=== PATIENT | male | born 1955 | race Caucasian/White ===

== ENCOUNTER 2018-09-07 05:32 | Day surgery (SDC) | payer BC ==
[2018-09-06 10:38] VITALS: BP 166/86
[2018-09-07] VITALS (18 sets, daily range): BP systolic 114–163; BP diastolic 62–82
[~2018-09-07] VITALS: Ht 172.7 cm; Wt 98.7 kg
[~2018-09-07 05:32] MED LIST: ACET1TAB12 PO; ALLO100T PO; CLIN300C9 PO; SULF1TAB3 PO; VANCOMYCIN 1.5 GM in SODIUM CHLORIDE 0.9% 250 ML IV SCH
[2018-09-07] MEDS ORDERED: LACTATED RINGERS 1000ML 1,000 ML IV ONE (06:23)
[2018-09-07] MEDS ORDERED: VANCOMYCIN HCL 1 GM VIAL ONE ×2 (07:35→09:25)
[2018-09-07] MEDS ORDERED: MIDAZOLAM HCL 1 MG/ML 2ML VIAL ONE (08:27)
[2018-09-07] MEDS ORDERED: PROPOFOL 10 MG/ML 20ML VIAL IV ONE (08:27)
[2018-09-07] MEDS ORDERED: FENTANYL CITRATE PF 50 MCG/1 ML 5ML AMP IV ONE (08:28)
[2018-09-07] MEDS ORDERED: ROCURONIUM 10MG/1ML SYR 10 MG/ML ML ONE (08:28)
[2018-09-07] MEDS ORDERED: GLYCOPYRROLATE 1 MG/5 ML SYRINGE ONE (09:16)
[2018-09-07] MEDS ORDERED: ONDANSETRON HCL 4 MG/2 ML VIAL ONE (09:18)
[2018-09-07] MEDS ORDERED: NEOSTIGMINE 5MG/5ML SYR IV ONE (09:21)
[2018-09-07] MEDS ORDERED: SULF1TAB42 PO (10:19)
[2018-09-07] MEDS ORDERED: MEPERIDINE-PF 25 MG/ML SYG ONE ×2 (10:22→10:35)
== END 2018-09-07 12:00 | disposition home or self-care (01) ==
LOC: DAH 05:32
PROVIDERS: ATTEND Orthopaedic Surgery
DX: M70.52 Other bursitis of knee, left knee (principal); M10.9 Gout, unspecified; Z98.890 Other specified postprocedural states; Z79.899 Other long term (current) drug therapy
CPT/HCPCS: 27340; 87070; 87076; 87077; 87186; 87205; 88304; A4649 ×3; A4930 ×2; A6223; J2175 ×2; J2250; J2405; J2704; J2710; J3010; J3370 ×3; J3490; J7030 ×2; J7120

== ENCOUNTER → 2024-05-15 | Outpatient (CLI) | payer OTHER, MEDICARE ==
[~2024-05-15] MED LIST changes: +CLIN-141 PO; -CLIN300C9 PO; +SULF1TAB42 PO; -VANCOMYCIN 1.5 GM in SODIUM CHLORIDE 0.9% 250 ML IV SCH
== END | disposition home or self-care (01) ==
LOC: RAH 14:08
PROVIDERS: ATTEND Nurse Practitioner Family
DX: M19.012 Primary osteoarthritis, left shoulder (principal); M48.02 Spinal stenosis, cervical region; M25.78 Osteophyte, vertebrae; M50.321 Other cervical disc degeneration at C4-C5 level; R29.898 Other symptoms and signs involving the musculoskeletal system; R20.2 Paresthesia of skin
CPT/HCPCS: 72141; 73221

== ENCOUNTER → 2025-07-15 | Outpatient (CLI) | payer OTHER, MEDICARE ==
--- NOTE | 2025-07-15 22:39 | HMCIMG ---
EXAM: MR Cervical Spine Without Intravenous Contrast. CLINICAL HISTORY: Pain. TECHNIQUE: Magnetic resonance images of the cervical spine in multiple planes. CONTRAST: None. COMPARISON: MRI dated 05/15/24. FINDINGS: The imaged posterior fossa is unremarkable. The craniocervical junction is intact. Anterior cervical fixation hardware and intervertebral disc spacers at C3-C5 vertebral levels. No acute fracture. Mild levoscoliosis. Straightening of the cervical lordosis reflects paraspinal muscle spasm. Multilevel spondylosis is evident by marginal osteophytes and facet joint arthropathy. Multilevel disc desiccation and degenerative disc height reduction noted, more pronounced at the C7-T1 level. Normal vertebral body heights. Modic type II changes in the contiguous endplates at the C6-C7 level. Myelomalacia noted in the cervical cord at C4-C5 vertebral levels. No extra-axial masses. The surrounding soft tissues are unremarkable. Level by level disease is present as follows: C1-C2: No osteoarthritis. C2-C3: 2 mm disc osteophyte complex bulge and facet joint arthropathy causing mild indentation on the anterior thecal sac and mild left foraminal narrowing. No lateral recess stenosis. C3-C4: 2 mm uncovertebral osteophytes causing moderate bilateral foraminal narrowing. No disc bulge or herniation. No lateral recess or spinal canal stenosis. C4-C5: 2 mm uncovertebral osteophytes causing moderate right and severe left foraminal narrowing. No disc bulge or herniation. No lateral recess or spinal canal stenosis. C5-C6: 4 mm disc osteophyte complex bulge causing mild indentation on the anterior thecal sac and mild bilateral foraminal narrowing. No lateral recess stenosis. C6-C7: 3mm disc osteophyte complex bulge causing mild indentation on the anterior thecal sac and mild bilateral foraminal narrowing. No lateral recess stenosis. C7-T1: 4 mm disc osteophyte complex bulge causing mild indentation on the anterior thecal sac and mild bilateral foraminal narrowing. No lateral recess stenosis. IMPRESSION: Anterior cervical fixation hardware and intervertebral disc spacers at C3-C5 vertebral levels. New finding. Mild levoscoliosis. New finding. Straightening of the cervical lordosis reflects paraspinal muscle spasm. Stable. Moderate multilevel spondylosis and degenerative disc changes. Stable. Modic type II changes in the contiguous endplates at the C6-C7 level. Stable. Mild indentation on the anterior thecal sac and mild left foraminal narrowing at the C2-C3 level. Stable. Moderate bilateral foraminal narrowing at the C3-C4 level. Significant interval improvement in the canal narrowing. Moderate right and severe left foraminal narrowing at the C4-C5 level. Significant interval improvement in the canal narrowing. Mild indentation on the anterior thecal sac and mild bilateral foraminal narrowing at the C5-C6, C6-C7, and C7-T1 levels. Stable. /[place]
--- NOTE | 2025-07-15 22:39 | HMCIMG ---
EXAM: MR Lumbar Spine Without Intravenous Contrast. CLINICAL HISTORY: Pain. TECHNIQUE: Magnetic resonance images of the lumbar spine in multiple planes. CONTRAST: None. COMPARISON: None. FINDINGS: For this examination, spinal levels were labeled assuming five non-rib bearing, lumbar-type vertebrae with the inferior labeled L5. No acute fracture. Old, bilateral L5 pars interarticularis fractures with grade 1 anterolisthesis of L5 over S1. Multilevel spondylosis is evident by marginal osteophytes and facet joint arthropathy. Multilevel disc desiccation noted. Mild facet joint synovitis at the L4-L5 level. Normal vertebral body and disc heights. Normal marrow signal of the vertebrae. Conus medullaris terminates at the L1 level. No abnormal epidural masses. Mild subcutaneous edema in the lower back. Individual spinal levels are described as follows: T12-L1: 3 mm disc osteophyte complex bulge causing mild indentation on the anterior thecal sac. No neural foraminal or lateral recess stenosis. L1-L2: 6 mm disc osteophyte complex bulge, ligamentum flavum thickening, and facet joint arthropathy causing mild canal narrowing and mild bilateral foraminal narrowing. No lateral recess stenosis. L2-L3: 5 mm disc osteophyte complex bulge, ligamentum flavum thickening, and facet joint arthropathy causing mild canal narrowing and mild bilateral foraminal narrowing. No lateral recess stenosis. L3-L4: 5 mm disc osteophyte complex bulge, ligamentum flavum thickening, and facet joint arthropathy causing mild canal narrowing and mild bilateral foraminal narrowing. No lateral recess stenosis. L4-L5: 7 mm disc osteophyte complex bulge, facet joint arthropathy, and 2.2 x 2 x 1.4 cm facet joint synovial cyst causing moderate canal narrowing with compression of the cauda equina, and moderate bilateral foraminal narrowing with indentation on the exiting bilateral L4 nerve roots (right more than left). No lateral recess stenosis. L5-S1: 5 mm diffuse disc bulge causing mild indentation on the anterior thecal sac and mild bilateral foraminal narrowing. No lateral recess stenosis. IMPRESSION: Old, bilateral L5 pars interarticularis fractures with grade 1 anterolisthesis of L5 over S1. Moderate to severe multilevel spondylosis. Mild facet joint synovitis at the L4-L5 level. Mild canal narrowing and mild bilateral foraminal narrowing the L1-L2, L2-L3, and L3-L4 levels. Moderate canal narrowing with compression of the cauda equina, and moderate bilateral foraminal narrowing with indentation on the exiting bilateral L4 nerve roots (right more than left) at the L4-L5 level. Mild indentation on the anterior thecal sac and mild bilateral foraminal narrowing at the L5-S1 level. /[place]
== END | disposition home or self-care (01) ==
LOC: RAH 14:14
PROVIDERS: ATTEND Neurological Surgery
DX: M51.16 Intervertebral disc disorders with radiculopathy, lumbar region (principal); M51.360 Other intervertebral disc degeneration, lumbar region with discogenic back pain only; M51.379 Other intervertebral disc degeneration, lumbosacral region without mention of lumbar back pain or lower extremity pain; M47.812 Spondylosis without myelopathy or radiculopathy, cervical region; M50.31 Other cervical disc degeneration, high cervical region; M50.322 Other cervical disc degeneration at C5-C6 level; M50.323 Other cervical disc degeneration at C6-C7 level; M50.33 Other cervical disc degeneration, cervicothoracic region; M48.03 Spinal stenosis, cervicothoracic region; M47.26 Other spondylosis with radiculopathy, lumbar region; M65.98 Unspecified synovitis and tenosynovitis, other site; M41.82 Other forms of scoliosis, cervical region; M48.07 Spinal stenosis, lumbosacral region; M24.28 Disorder of ligament, vertebrae; M48.02 Spinal stenosis, cervical region; G89.29 Other chronic pain; M62.81 Muscle weakness (generalized); M25.78 Osteophyte, vertebrae; R60.0 Localized edema; M62.838 Other muscle spasm; G83.4 Cauda equina syndrome
CPT/HCPCS: 72141; 72148